=== PATIENT | male | born 1995 | race Two or more races ===

== ENCOUNTER 2019-04-19 15:04 | Emergency (ER) | payer MEDICAID ==
[~2019-04-19] VITALS: Ht 170.2 cm; Wt 2.5 kg
[2019-04-19] MEDS ORDERED: SODIUM CHLORIDE 0.9% 500 ML IV ONE (15:10)
[2019-04-19] MEDS ORDERED: HYDROmorphone HCL 2 MG/ML VL IV ONE ×2 (15:15→18:30)
[2019-04-19] MEDS ORDERED: ONDANSETRON HCL 4 MG/2 ML VIAL IV ONE (15:15)
[2019-04-19 18:00] VITALS: BP 115/59
== END 2019-04-19 19:50 | disposition home or self-care (01) ==
LOC: EDBD 15:04 → ER 15:04
DX: S42.302A Unspecified fracture of shaft of humerus, left arm, initial encounter for closed fracture (principal); W18.31XA Fall on same level due to stepping on an object, initial encounter; Y93.23 Activity, snow (alpine) (downhill) skiing, snowboarding, sledding, tobogganing and snow tubing; Y92.39 Other specified sports and athletic area as the place of occurrence of the external cause; Y99.8 Other external cause status
CPT/HCPCS: 29105; 73030; 73060; 96374; 96375; 96376; 99283; J1170; J2405; J7040